=== PATIENT | male | born 1990 | race Caucasian/White ===

== ENCOUNTER 2020-09-15 11:06 | Emergency (ER) | payer MEDICAID ==
[~2020-09-15] VITALS: Ht 190.5 cm; Wt 79.4 kg
[2020-09-15 12:29] LABS: Basophils # (auto) 0 10 ^3/uL (0-0.2); Basophils % (auto) 0.5 % (0.0-2.0); Eosinophils # (auto) 0.3 10 ^3/uL (0-0.8); Eosinophils % (auto) 4.7 % (0.0-7.0); Hematocrit 42.4 % (41.0-53.0); Hemoglobin 14.2 g/dL (13.5-17.5); Lymphocytes # (auto) 1.9 10 ^3/uL (0.4-5.4); Lymphocytes % (auto) 27.5 % (10.0-50.0); Mean Corpuscular Hemoglobin 30.1 pg (28.0-32.0); Mean Corpuscular Hgb Conc. 33.5 g/dL (32.0-36.0); Mean Corpuscular Volume 89.8 fL (80.0-100.0); Monocytes # (auto) 0.5 10 ^3/uL (0-1.3); Monocytes % (auto) 6.6 % (0.0-12.0); Neutrophils # (auto) 4.2 10 ^3/uL (1.6-8.6); Neutrophils % (auto) 60.7 % (37.0-80.0); Nucleated Red Blood Cells % 0.1 %; Platelet Count (auto) 222 10^3/uL (140-450); Red Blood Cells 4.72 10^6/uL (4.5-5.90); Red Cell Distribution Width 12.7 % (11.8-14.3)
[2020-09-15 12:43] LABS: Potassium 3.6 mmol/L (3.5-5.1)
[2020-09-15 12:59] LABS: Albumin 4.3 g/dL (3.4-5.0); BUN/Creatinine Ratio 9.6; Bilirubin, Total 0.5 mg/dL (0.2-1.0); Total Protein 7.6 g/dL (6.4-8.2)
[2020-09-15 14:07] VITALS: BP 123/78
== END 2020-09-15 14:10 | disposition home or self-care (01) ==
LOC: ER 11:06
DX: R10.84 Generalized abdominal pain (principal)
CPT/HCPCS: 36415; 74176; 80053; 85025

== ENCOUNTER 2020-09-18 14:53 | Emergency (ER) | payer MEDICAID ==
[~2020-09-18] VITALS: Ht 190.5 cm; Wt 79.4 kg
[2020-09-18] MEDS ORDERED: ACETAMINOPHEN 325 MG TAB PO ONE ×2 (15:12→15:15)
[2020-09-18 15:14] VITALS: BP 143/93
== END 2020-09-18 15:34 | disposition home or self-care (01) ==
LOC: ER 14:53
DX: G44.209 Tension-type headache, unspecified, not intractable (principal)

== ENCOUNTER 2020-10-22 11:36 | Emergency (ER) | payer MEDICAID ==
[~2020-10-22] VITALS: Ht 190.5 cm; Wt 79.4 kg
[2020-10-22 11:49] VITALS: BP 129/80
== END 2020-10-22 15:01 | disposition home or self-care (01) ==
LOC: ER 11:36 → EDBD 11:36 → ER 15:01
DX: S09.8XXA Other specified injuries of head, initial encounter (principal); W18.39XA Other fall on same level, initial encounter; Y93.89 Activity, other specified; Y92.89 Other specified places as the place of occurrence of the external cause; Y99.8 Other external cause status
CPT/HCPCS: 93005

== ENCOUNTER 2020-12-17 19:46 | Emergency (ER) | payer MEDICAID ==
[~2020-12-17] VITALS: Ht 190.5 cm; Wt 79.4 kg
[2020-12-17 20:05] VITALS: BP 115/85
== END 2020-12-18 01:55 | disposition left against medical advice (07) ==
LOC: ER 19:49
DX: H57.11 Ocular pain, right eye (principal); Z53.21 Procedure and treatment not carried out due to patient leaving prior to being seen by health care provider

== ENCOUNTER 2021-04-27 14:40 | Emergency (ER) | payer MEDICAID ==
[~2021-04-27] VITALS: Ht 177.8 cm; Wt 74.8 kg
[2021-04-27 15:03] VITALS: BP 142/78
== END 2021-04-27 14:50 | disposition left against medical advice (07) ==
LOC: EDBD 14:40 → ER 14:40
DX: T40.411A Poisoning by fentanyl or fentanyl analogs, accidental (unintentional), initial encounter (principal); Y92.89 Other specified places as the place of occurrence of the external cause